=== PATIENT | male | born 1960 | race Caucasian/White ===

== ENCOUNTER 2020-12-28 23:21 | Emergency (ER) | payer MEDICAID ==
[2020-12-28] MEDS ORDERED: Sodium Chloride 0.9% 10 ML Syringe FLUSH PRN ×2 (23:43)
--- NOTE | 2020-12-28 23:45 | EDM.PDOC ---
ED HPI GENERAL MEDICAL PROBLEM - General Chief Complaint: Trauma Stated Complaint: Fall on Thinners Time Seen by Provider: 12/28/20 23:40 Source of Information: Reports: Patient History Limitations: Reports: Intoxication - History of Present Illness INITIAL COMMENTS - FREE TEXT/NARRATIVE: This patient is a 60 year old male that presents to the ER. Patient reports that he was walking upstairs when he slipped and fell backwards hitting his head. Patient denies loc, n, v, vision changes, neck pain, chest pain, shortness of breath, abd pain, pelvis, hip pain, back pain. Patient reports that he had a stroke one year ago with left sided weakness and that is part of the reason he fell. He reports he felt lightheaded when he fell. He also reports having +ETOH. He reports that he drank " a whole lot of liquor, I am not sure how much, but a ton all day and night." Patient on Plavix. Patient appears intoxicated. He is slow to respond and words are slurred. Patient reports no slurred speech from stroke.The patient reports that he has left sided shoulder pain and headache. Trauma Code called, 2 IVs placed, patient on cafeteria monitor, oxygen applied to patient 2L NC, patient undressed for exam, NS 1L started. Patient placed in C- Collar. Portable CXR ordered, portable pelvis ordered. Airway intact. Onset: Today Onset Date: 12/28/20 Onset Time: 23:00 Location: Reports: Head, Upper Extremity, Left Quality: Reports: Throbbing Severity: Severe Improves with: Reports: Immobilization Worsens with: Reports: Movement Associated Symptoms: Reports: Headaches. Denies: Confusion, Chest Pain, Cough, cough w sputum, Diaphoresis, Fever/Chills, Loss of Appetite, Malaise, Nausea/Vomiting, Rash, Seizure, Shortness of Breath, Syncope, Weakness - Related Data Allergies Allergy/AdvReac Type Severity Reaction Status Date / Time Unable to Assess Allergy Unverified 12/28/20 23:33 Home Meds: Home Meds Clopidogrel Bisulfate [Plavix] 75 mg PO DAILY 12/28/20 [History] Review of Systems - Review of Systems Review Of Systems: See Below Constitutional: Reports: No Symptoms Eyes: Reports: No Symptoms Ears: Reports: No Symptoms Nose: Reports: No Symptoms Mouth/Throat: Reports: No Symptoms Respiratory: Reports: No Symptoms. Denies: Shortness of Breath Cardiovascular: Reports: Lightheadedness. Denies: Chest Pain, Edema, Palpitations, Syncope GI/Abdominal: Reports: No Symptoms. Denies: Abdominal Pain, Nausea, Vomiting Genitourinary: Reports: No Symptoms Musculoskeletal: Reports: Shoulder Pain (left) Skin: Reports: Wound (scalp) Neurological: Reports: Dizziness, Headache, Change in Speech, Gait Disturbance Psychiatric: Reports: No Symptoms ED EXAM, GENERAL - Physical Exam Exam: See Below Exam Limited By: Intoxication General Appearance: Alert, WD/WN, Mild Distress Eye Exam: Bilateral Eye: EOMI, Normal Inspection, PERRL Ears: Normal External Exam, Normal Canal, Hearing Grossly Normal, Normal TMs Ear Exam: Bilateral Ear: Auricle Normal, Canal Normal, TM normal Nose: Normal Inspection, Normal Mucosa, No Blood Throat/Mouth: Normal Inspection, Normal Lips, Normal Teeth, Normal Gums, Normal Oropharynx, Normal Voice, No Airway Compromise Head: Other (traumatic injury: left posterior scalp swelling with laceration) Neck: Normal Inspection, Supple, Non-Tender, Other (Placed in C-Collar). No: Tender Lateral, Tender Midline Respiratory/Chest: No Respiratory Distress, Lungs Clear, Normal Breath Sounds, No Accessory Muscle Use, Chest Non-Tender. No: Decreased Breath Sounds, Accessory Muscle Use, Prolonged Expiration Cardiovascular: Normal Peripheral Pulses, Regular Rate, Rhythm, No Edema, No Gallop, No JVD, No Murmur, No Rub Peripheral Pulses: 2+: Carotid (L), Carotid (R), Radial (L), Radial (R), Femoral (L), Femoral (R), Posterior Tibial (L), Posterior Tibial (R) GI/Abdominal: Normal Bowel Sounds, Soft, Non-Tender, No Organomegaly, No Distention, No Abnormal Bruit, No Mass, Pelvis Stable (Male) Exam: Deferred Back Exam: Normal Inspection, Full Range of Motion. No: CVA Tenderness (L), CVA Tenderness (R) Extremities: Normal Capillary Refill, Joint Swelling (left shoulder), Limited Range of Motion (left shoulder), Other (Left shoulder obvious deformity. Appears anterior dislocation. Left arm sling position. Pulses +2, cap refill < 2 sec. Sensory is intact. Neurovascular intact. ) Neurological: Alert, Oriented, Slow to Respond, Other (Patient has left sided weakness. Patient reports this is baseline from CVA 1 year ago. ) Psychiatric: Normal Affect, Normal Mood Skin Exam: Warm, Dry, Ecchymosis (Left shoulder), Wound/Incision (Left posterior scalp) #1 Interpretation EKG Date: 12/29/20 Time: 23:42 Rhythm: NSR Rate (Beats/Min): 82 QRS: Normal ST-T: Normal Comparison: NA - No Prior EKG Course - Vital Signs Last Recorded V/S: Last Vital Signs Temp 97.8 F 12/28/20 23:22 Pulse 89 12/28/20 23:22 Resp 14 12/28/20 23:22 BP 153/76 H 12/28/20 23:22 Pulse Ox 98 12/28/20 23:22 - Orders/Labs/Meds Orders: Active Orders 24 hr Category Date Time Status EKG Documentation Completion [RC] STAT Care 12/28/20 23:43 Active Vaccines to be Administered [RC] PER UNIT ROUTINE Care 12/28/20 23:32 Active Abdomen Pelvis w Cont [CT] Stat Exams 12/28/20 23:48 Ordered Cervical Spine wo Cont [CT] Stat Exams 12/28/20 23:28 Taken Chest 1V Frontal [CR] Stat Exams 12/28/20 23:40 Taken Chest w Cont [CT] Stat Exams 12/28/20 23:48 Ordered Head wo Cont [CT] Stat Exams 12/28/20 23:28 Taken Pelvis 1V or 2V [CR] Stat Exams 12/28/20 23:40 Taken DRUG SCREEN URINE BIORAD [URCHEM] Stat Lab 12/28/20 23:42 Ordered UA RFX NINOSKA AND CULT IF INDIC [URIN] Stat Lab 12/28/20 23:42 Ordered Sodium Chloride 0.9% [Saline Flush] Med 12/28/20 23:43 Active 10 ml FLUSH ASDIRECTED PRN Sodium Chloride 0.9% [Saline Flush] Med 12/28/20 23:43 Active 10 ml FLUSH ASDIRECTED PRN Saline Lock Insert [OM.PC] Routine Oth 12/28/20 23:43 Ordered Saline Lock Insert [OM.PC] Routine Oth 12/28/20 23:43 Ordered Medication Orders Sodium Chloride (Sodium Chloride 0.9% 10 Ml Syringe) 10 ml FLUSH ASDIRECTED PRN PRN Reason: Keep Vein Open Sodium Chloride (Sodium Chloride 0.9% 10 Ml Syringe) 10 ml FLUSH ASDIRECTED PRN PRN Reason: Keep Vein Open Labs: Laboratory Tests 12/28/20 12/28/20 12/28/20 Range/Units 23:40 23:40 23:40 WBC 6.1 (4.0-11.0) 10^3/uL RBC 4.09 L (4.50-6.00) x10^6/uL Hgb 12.1 L (14.0-18.0) g/dL Hct 35.3 L (42.0-52.0) % MCV 86.3 (83.0-97.0) fL MCH 29.6 (27.0-32.0) pg MCHC 34.3 (32.0-36.0) g/dL RDW Coeff of Jamshid 14.3 (11.0-15.0) % Plt Count 175 (150-400) 10^3/uL Immature Gran % (Auto) 0.3 (0.0-4.9) % Neut % (Auto) 60.2 (41-71) % Lymph % (Auto) 29.9 (24-44) % Frio % (Auto) 7.3 (0-10) % Eos % (Auto) 2.1 (0-6) % Baso % (Auto) 0.2 (0-1) % Neut # (Auto) 3.69 (1.80-8.00) x10^3/uL Lymph # (Auto) 1.83 (0.60-5.00) 10^3/uL Frio # (Auto) 0.45 (0.00-1.50) 10^3/uL Eos # (Auto) 0.13 (0.00-1.50) 10^3/uL Baso # (Auto) 0.01 (0.00-0.50) 10^3/uL Immature Gran # (Auto) 0.02 (0.00-0.49) 10^3/uL Sodium 136 (136-145) mEq/L Potassium 3.4 L (3.5-5.0) mEq/L Chloride 101 (98-106) mEq/L Carbon Dioxide 24 (21-32) mmol/L BUN 8 (7-18) mg/dL Creatinine 1.5 H (0.7-1.3) mg/dL Est Cr Clr Drug Dosing TNP Estimated GFR (MDRD) 47 L (>=60) mL/min Glucose 117 H (75-99) mg/dL Lactic Acid 2.4 H (0.4-2.0) mmol/L Calcium 7.8 L (8.4-10.1) mg/dL Magnesium 1.8 (1.8-2.4) mg/dL Total Bilirubin 0.3 (0.0-1.0) mg/dL AST 19 (15-37) U/L ALT 15 (12-78) U/L Alkaline Phosphatase 77 (46-116) U/L Lactate Dehydrogenase 182 (100-190) U/L Creatine Kinase 159 (35-232) U/L Troponin I < 0.017 (0.00-0.06) ng/mL Total Protein 6.6 (6.4-8.2) g/dL Albumin 3.5 (3.4-5.0) g/dL Amylase 50 (25-115) U/L Lipase 109 (73-393) U/L Ethyl Alcohol 196 H (0-3) mg/dL Meds: Medications Generic Name Dose Route Start Last Admin Trade Name Freq PRN Reason Stop Dose Admin Sodium Chloride 10 ml 12/28/20 23:43 Sodium Chloride 0.9% 10 Ml Syringe FLUSH ASDIRECTED PRN Keep Vein Open Sodium Chloride 10 ml 12/28/20 23:43 Sodium Chloride 0.9% 10 Ml Syringe FLUSH ASDIRECTED PRN Keep Vein Open Discontinued Medications Generic Name Dose Route Start Last Admin Trade Name Freq PRN Reason Stop Dose Admin Diphtheria/Tetanus/Acell Pertussis 0.5 ml 12/28/20 23:32 12/29/20 00:33 Diphtheria,Pertussis(Acell),Tetanus Vaccine 0.5 Ml Syringe IM 12/28/20 23:33 0.5 ml .ONCE ONE Administration Fentanyl 12.5 mcg 12/29/20 00:22 12/29/20 00:33 Fentanyl 50 Mcg/Ml Sdv IVPUSH 12/29/20 00:23 12.5 mcg ONETIME ONE Administration Fentanyl Confirm 12/29/20 00:01 Fentanyl 50 Mcg/Ml Sdv Administered 12/29/20 00:02 Dose 50 mcg .ROUTE .STK-MED ONE Fentanyl 12.5 mcg 12/29/20 00:57 Fentanyl 50 Mcg/Ml Sdv IVPUSH 12/29/20 00:58 ONETIME ONE Sodium Chloride 1,000 mls @ 1,000 mls/hr 12/28/20 23:45 12/29/20 00:34 Normal Saline IV 12/29/20 00:44 1,000 mls/hr .BOLUS ONE Administration - Radiology Interpretation Free Text/Narrative:: CXR: No pneumo/no hemothorax. Pelvis: No fracture - Re-Assessments/Exams Free Text/Narrative Re-Assessment/Exam: 12/29/20 23:50 After a rapid initial assessment, I determined this patient is unable to stay in [place]. He has a positive head injury with +ETOH, intoxication, on Plavix. He also has a distracting injury to the left shoulder. We do not have neurosurgery in [place] in case of head bleed or delayed head bleed. We are 2 hours away from the nearest trauma center. We do not have ALS transfer capabilities and again, if we did, we are 2 hours away. Flight is needed for transfer in case of head bleed. Also, at this time, will not reduce shoulder with sedation due to injuries reported above and risks of sedation if neurosurgeon needs to see neuro status. I called and spoke to Dr. Jackson at [facility] who has accepted the patient. 12/29/20 00:00 Flight has called and report they are 1 hour away. Patient had labs done, reviewed. Patient with computer engineering technician getting Imaging. 12/29/20 00:20 Patient is requesting pain medication for his left shoulder pain. Will give Fentanyl IV. 12/29/20 00:47 Patient reports Fentanyl has helped. 12/29/20 00:58 Patient now requesting more pain medication. Will repeat Fentanyl dose 12/29/20 01:10 Flight has arrived. Patient vitals stable. Airway intact. Patient alert. Intoxicated, slow to respond, but oriented. Still no CT results. Patient remains in C-Collar. Did not put shoulder in arm sling due to not being able to clear cervical at this time. Departure - Departure Time of Disposition: 00:52 Disposition: DC/Tfer to Acute Hospital 02 Condition: Serious Clinical Impression: Hx of mcc use of blood thinners Shoulder dislocation Qualifiers: Encounter type: initial encounter Laterality: left Qualified Code(s): S43.005A - Unspecified dislocation of left shoulder joint, initial encounter Head injury Qualifiers: Encounter type: initial encounter Qualified Code(s): S09.90XA - Unspecified injury of head, initial encounter Elevated ETOH level Qualifiers: Blood alcohol level: 120-199 mg/100 ml Qualified Code(s): Y90.6 - Blood alcohol level of 120-199 mg/100 ml Scalp laceration Qualifiers: Encounter type: initial encounter Qualified Code(s): S01.01XA - Laceration without foreign body of scalp, initial encounter - Discharge Information *PRESCRIPTION DRUG MONITORING PROGRAM REVIEWED*: No *COPY OF PRESCRIPTION DRUG MONITORING REPORT IN PATIENT SARBJIT: No Referrals: PCP,None [Primary Care Provider] - Forms: ED Department Discharge Sepsis Event Note (ED) - Evaluation Sepsis Screening Result: No Definite Risk - Focused Exam Vital Signs: Vital Signs Temp Pulse Resp BP Pulse Ox 12/28/20 23:22 97.8 F 89 14 153/76 H 98 - My Orders Last 24 Hours: My Active Orders 12/28/20 23:28 Cervical Spine wo Cont [CT] Stat Head wo Cont [CT] Stat 12/28/20 23:32 Vaccines to be Administered [RC] PER UNIT ROUTINE 12/28/20 23:40 Chest 1V Frontal [CR] Stat Pelvis 1V or 2V [CR] Stat 12/28/20 23:42 DRUG SCREEN URINE BIORAD [URCHEM] Stat UA RFX NINOSKA AND CULT IF INDIC [URIN] Stat 12/28/20 23:43 EKG Documentation Completion [RC] STAT Sodium Chloride 0.9% [Saline Flush] 10 ml FLUSH ASDIRECTED PRN Sodium Chloride 0.9% [Saline Flush] 10 ml FLUSH ASDIRECTED PRN Saline Lock Insert [OM.PC] Routine Saline Lock Insert [OM.PC] Routine 12/28/20 23:48 Abdomen Pelvis w Cont [CT] Stat Chest w Cont [CT] Stat - Assessment/Plan Last 24 Hours: My Active Orders 12/28/20 23:28 Cervical Spine wo Cont [CT] Stat Head wo Cont [CT] Stat 12/28/20 23:32 Vaccines to be Administered [RC] PER UNIT ROUTINE 12/28/20 23:40 Chest 1V Frontal [CR] Stat Pelvis 1V or 2V [CR] Stat 12/28/20 23:42 DRUG SCREEN URINE BIORAD [URCHEM] Stat UA RFX NINOSKA AND CULT IF INDIC [URIN] Stat 12/28/20 23:43 EKG Documentation Completion [RC] STAT Sodium Chloride 0.9% [Saline Flush] 10 ml FLUSH ASDIRECTED PRN Sodium Chloride 0.9% [Saline Flush] 10 ml FLUSH ASDIRECTED PRN Saline Lock Insert [OM.PC] Routine Saline Lock Insert [OM.PC] Routine 12/28/20 23:48 Abdomen Pelvis w Cont [CT] Stat Chest w Cont [CT] Stat Plan: PLEASE SEE RN NOTE FOR ON LICENSE OF [facility] 12/28/2020 0010 This patient is being transferred to [facility] via helicopter. His son just arrived in the ER room. Patient is not able to make this decision with his +ETOH, intoxicated. Son has accepted the transfer. Patient has also accepted transfer verbally. Risk of transfer is helicopter crash, , worsening of condition, head bleed in route, intubation. The risk of staying in [place] is no neurosurgeon, no trauma facility, no orthopedic. The benefits of transfer are higher level of care, neurosurgeon if needed, orthopedic surgeon, trauma center. The benefits of staying in [place] is close to son who lives here.
[2020-12-29 00:05] LABS: CHLORIDE,CL 101 mEq/L (98-106); SODIUM,NA 136 mEq/L (136-145)
[2020-12-29] MEDS: fentaNYL 50 MCG/ML SDV IVPUSH ONE ×2 (00:33→01:00)
[2020-12-29] MEDS: Diphtheria,Pertussis(Acell),Tetanus Vaccine 0.5 ML Syringe IM ONE (00:33)
[2020-12-29] MEDS: Sodium Chloride 0.9% 1,000 ML IV ONE (00:34)
[2020-12-31] MEDS: fentaNYL 50 MCG/ML SDV ONE (15:52)
== END 2020-12-29 01:55 ==
LOC: CC.ED 23:21
DX: S43.005A Unspecified dislocation of left shoulder joint, initial encounter (principal); S01.01XA Laceration without foreign body of scalp, initial encounter; F10.129 Alcohol abuse with intoxication, unspecified; Y90.6 Blood alcohol level of 120-199 mg/100 ml; Z79.02 Long term (current) use of antithrombotics/antiplatelets; Z23 Encounter for immunization; W01.198A Fall on same level from slipping, tripping and stumbling with subsequent striking against other object, initial encounter
CPT/HCPCS: 36415; 70450; 71045; 71260; 72125; 72170; 74177; 80053; 80307; 82150; 82550; 83605; 83615; 83690; 83735; 84484; 85025; 90471; 90715; 96374; 99285-25; J3010; J7030